=== PATIENT | male | born 1945 | race Two or more races ===

== ENCOUNTER 2018-01-09 22:49 | Emergency (ER) | payer OTHER ==
[~2018-01-09] VITALS: Ht 170.2 cm; Wt 87.1 kg
[2018-01-09] MEDS ORDERED: GLIPIZIDE10 MG (23:05)
[2018-01-09] MEDS ORDERED: METFORMIN HCL500 MG (23:05)
[2018-01-09] MEDS ORDERED: JANUVIA100 MG (23:05)
[2018-01-09] MEDS ORDERED: LANTUS SOL100 UNIT/1 (23:06)
[2018-01-09] MEDS ORDERED: ZOCOR20 MG (23:06)
[2018-01-09] MEDS ORDERED: ZESTRIL30 MG (23:06)
[2018-01-09] MEDS ORDERED: COMBIVENT RESPIM4 GM (23:08)
[2018-01-10] MEDS ORDERED: MUCINEX DM ER1 EAC1 PO (02:51)
[2018-01-10] MEDS ORDERED: TESSALON PERLE100 MG PO (02:51)
[2018-01-10] MEDS ORDERED: AZITHROMYCIN500 MG PO (02:51)
[2018-01-10] MEDS ORDERED: XOPENEX HFA15 GM IH (02:51)
== END 2018-01-10 02:52 | disposition home or self-care (01) ==
LOC: ER 22:49
DX: J06.9 Acute upper respiratory infection, unspecified (principal); J11.1 Influenza due to unidentified influenza virus with other respiratory manifestations

== ENCOUNTER 2018-09-01 07:06 | Outpatient (CLI) | payer OTHER ==
[~2018-09-01 07:06] MED LIST: AZITHROMYCIN500 MG PO; COMBIVENT RESPIM4 GM; GLIPIZIDE10 MG; JANUVIA100 MG; LANTUS SOL100 UNIT/1; METFORMIN HCL500 MG; MUCINEX DM ER1 EAC1 PO; TESSALON PERLE100 MG PO; XOPENEX HFA15 GM IH; ZESTRIL30 MG; ZOCOR20 MG
== END 2018-09-01 07:40 | disposition home or self-care (01) ==
LOC: LAB 07:06 → RAD 07:06 → LAB 07:40
DX: K40.90 Unilateral inguinal hernia, without obstruction or gangrene, not specified as recurrent (principal); K42.9 Umbilical hernia without obstruction or gangrene; Z01.818 Encounter for other preprocedural examination

== ENCOUNTER → 2018-09-27 | Day surgery (SDC) | payer OTHER ==
[~2018-09-27] MED LIST changes: +ATORVASTATIN CA20 MG; +NEURONTIN300 MG PO; +PERCOCET 5-3251 EACH PO; +POLY119PG PO
== END | disposition home or self-care (01) ==
LOC: ADM 09-20 07:00 → CIR.AMB 05:15
DX: K40.90 Unilateral inguinal hernia, without obstruction or gangrene, not specified as recurrent (principal); K42.0 Umbilical hernia with obstruction, without gangrene

== ENCOUNTER 2021-07-10 07:48 | Outpatient (CLI) | payer OTHER | END 2021-07-10 07:58 | disposition home or self-care (01) | LOC: RX STUDY 07:48 | PROVIDERS: ATTEND Internal Medicine | DX: R13.12 Dysphagia, oropharyngeal phase (principal) ==

== ENCOUNTER → 2022-05-06 10:35 | Outpatient (CLI) | payer OTHER | END | disposition home or self-care (01) | LOC: NUCLEAR 10:35 | PROVIDERS: ATTEND Internal Medicine | DX: I11.9 Hypertensive heart disease without heart failure (principal); Z91.013 Allergy to seafood ==

== ENCOUNTER 2023-05-31 07:25 | Outpatient (CLI) | payer OTHER | END 2023-05-31 07:33 | disposition home or self-care (01) | LOC: NUCLEAR 07:25 | PROVIDERS: ATTEND Internal Medicine | DX: I25.118 Atherosclerotic heart disease of native coronary artery with other forms of angina pectoris (principal); I11.9 Hypertensive heart disease without heart failure; E11.9 Type 2 diabetes mellitus without complications; R07.9 Chest pain, unspecified | CPT/HCPCS: 78452; 93017; A9500; J0153 ==

== ENCOUNTER 2023-12-23 07:17 | Outpatient (CLI) | payer OTHER | END 2023-12-23 07:23 | disposition home or self-care (01) | LOC: SONOGRAMA 07:17 | PROVIDERS: ATTEND Internal Medicine Nephrology | DX: R10.9 Unspecified abdominal pain (principal); N18.9 Chronic kidney disease, unspecified; I10 Essential (primary) hypertension; E11.22 Type 2 diabetes mellitus with diabetic chronic kidney disease ==

== ENCOUNTER 2025-02-11 11:45 | Emergency (ER) | payer OTHER ==
[~2025-02-11] VITALS: Ht 170.2 cm; Wt 79.4 kg
[2025-02-11] MEDS ORDERED: ADULT LOW DOSE81 M1 (12:24)
[2025-02-11 12:25] VITALS: BP 132/68; O2SAT 99
[2025-02-11] MEDS ORDERED: TRIJARDY XR 121 EACH (12:25)
[2025-02-11] MEDS ORDERED: CEFTRIAXONE SODIUM 1,000 MG VIAL IM ONE (14:15)
[2025-02-11] MEDS ORDERED: CEFTRIAXONE SODIUM 1,000 MG VIAL ONE (14:20)
== END 2025-02-11 15:43 | disposition home or self-care (01) ==
LOC: ER 11:46
DX: L97.929 Non-pressure chronic ulcer of unspecified part of left lower leg with unspecified severity (principal); I10 Essential (primary) hypertension; E11.9 Type 2 diabetes mellitus without complications; Z79.84 Long term (current) use of oral hypoglycemic drugs; Z79.4 Long term (current) use of insulin; Z91.013 Allergy to seafood
CPT/HCPCS: 96372; 99282; J0696

== ENCOUNTER 2025-04-11 07:45 | Outpatient (CLI) | payer OTHER ==
[~2025-04-11 07:45] MED LIST changes: +ADULT LOW DOSE81 M1; +TRIJARDY XR 121 EACH
== END 2025-04-11 07:49 | disposition home or self-care (01) ==
LOC: NUCLEAR 07:45
PROVIDERS: ATTEND Specialist
DX: I87.2 Venous insufficiency (chronic) (peripheral) (principal)

== ENCOUNTER → 2025-04-15 07:58 | Outpatient (CLI) | payer OTHER | END | disposition home or self-care (01) | LOC: NUCLEAR 07:58 | PROVIDERS: ATTEND Specialist | DX: I73.9 Peripheral vascular disease, unspecified (principal) ==